=== PATIENT | female | born 1995 | race Two or more races ===

== ENCOUNTER 2020-10-14 14:15 | Emergency (ER) | payer OTHER ==
[~2020-10-14] VITALS: Ht 167.6 cm; Wt 68.0 kg
[2020-10-14 15:30] VITALS: BP 104/57
== END 2020-10-14 16:53 | disposition home or self-care (01) ==
LOC: ER 14:15
DX: M62.838 Other muscle spasm (principal); V49.9XXA Car occupant (driver) (passenger) injured in unspecified traffic accident, initial encounter; Y93.89 Activity, other specified; Y92.89 Other specified places as the place of occurrence of the external cause; Y99.8 Other external cause status
CPT/HCPCS: 70450; 72125; 73030; 73562; 73610